=== PATIENT | male | born 1940 | race Caucasian/White ===

== ENCOUNTER 2022-06-25 10:29 | Outpatient (CLI) | payer MEDICARE, OTHER, SELFPAY ==
--- NOTE | 2022-06-25 10:47 | MR_ITS ---
WS: [id number] MRI BRAIN WITH HIGH-RESOLUTION IMAGING THROUGH THE INTERNAL AUDITORY CANALS WITHOUT AND WITH CONTRAST HISTORY: OTHER SPECIFIED HEARING LOSS COMPARISON: None available. TECHNIQUE: Multiplanar, multisequence imaging is performed through the brain. Additional 3 mm imaging performed in multiple planes through the internal auditory canal. Postcontrast imaging with 15 ml's of MultiHance. No acute intracranial hemorrhage, midline shift, edema or mass effect. No acute infarcts. Mild atrophy and moderate small vessel ischemic disease. Ventricles and extra-axial spaces are mildly prominent on the basis of atrophy. No inferior displacement of cerebellar tonsils. Clivus and pituitary gland are normal. Seen only on the axial T1 sequence postcontrast is asymmetry and mild increased enhancement within th e muscles of the LEFT tongue base and along the palatine tonsil. Asymmetry is nonmass-like in appeara nce but this is asymmetric and there is increased enhancement. Otherwise no abnormal areas of enhance ment. Internal and external auditory canals: Unremarkable. Cranial nerves VII and VIII complexes: Unremarkable. No enhancement or mass. Cerebellopontine angles: Normal. Paranasal sinuses: Normal. Mastoid air cells: Normal. Calvarium and scalp: Normal. Visualized ruby of Singh and dural venous sinuses demonstrate no abnormality. MR/MR iac's wo/w con* [id number] IMPRESSION: 1. Normal appearance of the internal auditory canals. 2. No mass at the cerebellopontine angle. 3. Mild asymmetry and enhancement involving the LEFT tongue base into the sofiya nicolette tonsil. Very nonmasslike in appearance but is asymmetric. Direct visualiza tion would be helpful. Otherwise recommend neck CT with IV contrast. 4. Moderate small vessel ischemic disease and atrophy.
== END 2022-06-25 10:30 | disposition home or self-care (01) ==
PROVIDERS: PCP Internal Medicine; Visit Provider Specialist
DX: H91.8X9 Other specified hearing loss, unspecified ear (principal); I67.82 Cerebral ischemia; G31.9 Degenerative disease of nervous system, unspecified
CPT/HCPCS: 70553; A9577

== ENCOUNTER 2024-02-03 17:58 | Emergency (ER) | payer MEDICARE, OTHER, SELFPAY ==
[2024-02-03] VITALS (9 sets, daily range): BP systolic 142–188; BP diastolic 99–152; PULSE 50–106; RESP 18; TEMP 36.3; O2SAT 92–97; BMI 24.5
--- NOTE | 2024-02-03 18:33 | ED_ITS ---
HPI - Epistaxis General: Chief complaint: Epistaxis Stated complaint: nose bleed 3 + hr choking clots in throat Time Seen by Provider: 02/03/24 18:18 History of Present Illness: Patient presents to the ER with complaints of spontaneous epistaxis. He thinks it started in his right nose which he plugged with tissue started come out of left nose which she plugged with tissue. This started about 3 hours ago. Patient is on Eliquis. Patient is had no nasal trauma. Review of Systems General: Reports: 10 or more systems reviewed and unremarkable except in HPI and below Physical Exam Const: COMMON NORMALS: no acute distress, average body habitus, patient oriented x3, no limitations, healthy appearing, alert and well nourished HENMT: COMMON NORMALS: normocephalic, atraumatic, hearing grossly normal bilaterally, external ears normal, moist oral mucous membranes and oropharynx normal HEAD & SCALP: normocephalic and atraumatic EXTERNAL EAR: Yes external ears normal Neck/C-Spine: COMMON NORMALS: no JVD Chest: COMMONS NORMALS: normal inspection of the chest and normal palpation of entire chest wall Resp: COMMON NORMALS: normal respiratory effort, No retractions, No use of accessory muscles and clear to auscultation bilaterally AUSCULTATION: clear to auscultation bilaterally Cardio: COMMON NORMALS: no JVD, regular rate, regular rhythm, S1 normal heart sound present, S2 normal heart sound present, No gallops present (Cardio), No clicks present (Cardio), No murmurs present (Cardio) and No rub (Cardio) RATE: regular rate RHYTHM: regular rhythm HEART SOUNDS: S1 normal heart sound present and S2 normal heart sound present GI: COMMON NORMALS: Normal to inspection, nondistended, normoactive bowel sounds present, Soft to palpation, non-tender, No hepatosplenomegaly present and no masses PALPATION: Yes Soft to palpation and Yes No hepatosplenomegaly present Neuro: COMMON NORMALS: patient oriented x3 SENSORIUM/ORIENTATION: Yes alert Procedures Epistaxis Control Time Out Performed: Yes Nostril: right Direct Inspection: yes and unable to visualize Clots Removed by: blowing nose, suction and manually Device Inserted: hemostatic dressing Patient Tolerated Procedure: well Course Vital Signs: Vital signs: Vital Signs Temperature 97.4 F L 02/03/24 18:04 Pulse Rate 96 02/03/24 22:30 Respiratory Rate 18 02/03/24 22:00 Blood Pressure 188/152 02/03/24 23:00 Pulse Oximetry 94 02/03/24 22:30 Oxygen Delivery Me thod Room Air 02/03/24 22:30 MDM - Epistaxis Medical Decision Making We will call over the hospital for Rhinrolly Lees could not find 1. Patient had preformed packing placed in his nose which decreased the bleeding substantially. However this did not stop it. Dr. Chery was called who said we would have to transfer him if we do not have the appropriate supplies here for him to take care of his nosebleed as he was not going to take him to the OR for this. We looked around for [facility] again still cannot find him another preformed nose packing was inserted this time after insertion it was saturated with TXA. Patient was kept in approximately 1 more hour and no bleeding was noted. Patient be discharged home. Differential Diagnosis Likely anterior epistaxis and posterior epistaxis; Unlikely nasal bone fracture Medical Records I reviewed the patient's medical records. Lab Data I reviewed the patient's lab results. No radiology studies performed this visit Discharge Plan Discharge Patient Disposition: Home Clinical Impression: Epistaxis Condition: Stable Discharge Orders: Discharge ED (Routine); Ordered 02/03/24 Ordered By: Shen Reveles Referrals: Cam Vega MD [Primary Care Provider] - 1-3 days Patient Instructions: Nosebleed (ED) Activity Restrictions/Additional Instructions: A nasal pack was placed in your right nostril to stop the bleeding. It will need to be removed in approximately 24 to 48 hours. Please follow-up with your family practice physician, urgent care or the ER to have it removed. You do run the risk of it bleeding again once its removed. You are on the Eliquis which makes your bleeding or profuse. If you run into any problems please feel free to return to the ER. Coding Level of Care Code ED Perinatal Director for Addy Chapa
[2024-02-03] MEDS: oxymetazoline 0.05% Nasal Spray 15 mL 2 SPRAY NOSTRIL-B (19:40)
[2024-02-03] MEDS: ondansetron 4 MG Tablet PO (20:12)
[2024-02-03] MEDS: cloNIDine 0.1 mg Tablet 0.200000000000000011 MG PO (20:12)
--- NOTE | 2024-02-03 22:26 | PC.NURSE ---
PT EDUCATED TO NOT PULL OR WIPE AT NOSE. PT CONTINUES TO WIPE BLOOD WITH A RAG. NOSE CLAMP READJUSTED AT THIS TIME.
[2024-02-03] MEDS: tranexamic acid 1,000 mg/10mL SDV 1000 MG XX (22:48)
[2024-02-04 00:10] VITALS: BP 154/97; PULSE 89; RESP 18; O2SAT 98
== END 2024-02-04 00:13 | disposition home or self-care (01) ==
PROVIDERS: Emergency Provider Emergency Medicine; PCP Internal Medicine
DX: R04.0 Epistaxis (principal); Z79.01 Long term (current) use of anticoagulants
CPT/HCPCS: 30903; 99283; Q0162

== ENCOUNTER → 2025-09-29 13:30 | Outpatient (BNVA) | payer MEDICARE, OTHER, SELFPAY | PROVIDERS: PCP Internal Medicine; Visit Provider Emergency Medicine | DX: N39.41 Urge incontinence (principal) | CPT/HCPCS: 81000 ==